=== PATIENT | male | born 1975 | race Caucasian/White ===

== ENCOUNTER 2021-02-27 13:51 | Inpatient (IN) | payer BC ==
[~2021-02-27] VITALS: Ht 190.5 cm; Wt 124.7 kg
[~2021-02-27 13:51] MED LIST: ALDACTONE 25MG25 MG PO; FUROSEMIDE20 MG PO; LOPRESSOR100 MG PO; NORVASC5 MG PO
[2021-02-27 15:53] LABS: RED BLOOD COUNT 4.69 M/UL (4.20-5.50); WHITE BLOOD COUNT 25.1 K/UL (4.5-11.0)
[2021-02-28 04:13] LABS: HEMOGLOBIN 12.4 gm/dl (14.0-17.5); RED BLOOD COUNT 4.23 M/UL (4.20-5.50); WHITE BLOOD COUNT 19.2 K/UL (4.5-11.0)
[2021-03-01 05:33] LABS: HEMOGLOBIN 12.3 gm/dl (14.0-17.5); RED BLOOD COUNT 4.2 M/UL (4.20-5.50); WHITE BLOOD COUNT 17.6 K/UL (4.5-11.0)
[2021-03-02 02:58] LABS: HEMOGLOBIN 12.1 gm/dl (14.0-17.5); RED BLOOD COUNT 4.13 M/UL (4.20-5.50); WHITE BLOOD COUNT 17.2 K/UL (4.5-11.0)
[2021-03-03 09:10] LABS: HEMOGLOBIN 13.4 gm/dl (14.0-17.5)
[2021-03-03 09:13] LABS: RED BLOOD COUNT 4.57 M/UL (4.20-5.50)
[2021-03-03] MEDS ORDERED: CLINDAMYCIN HC300 MG PO (11:54)
[2021-03-03] MEDS ORDERED: FUROSEMIDE20 MG PO (11:54)
== END 2021-03-03 15:12 | disposition home or self-care (01) | DRG 872 ==
LOC: ER1 13:51 → CDU 19:08 → MED SURG 4 19:08
PROVIDERS: ADMIT Internal Medicine
DX: A41.02 Sepsis due to Methicillin resistant Staphylococcus aureus (principal); L03.113 Cellulitis of right upper limb; I13.0 Hypertensive heart and chronic kidney disease with heart failure and stage 1 through stage 4 chronic kidney disease, or unspecified chronic kidney disease; I50.22 Chronic systolic (congestive) heart failure; E87.1 Hypo-osmolality and hyponatremia; L02.818 Cutaneous abscess of other sites; Z20.822 Contact with and (suspected) exposure to COVID-19; N18.30 Chronic kidney disease, stage 3 unspecified; E87.6 Hypokalemia; E66.9 Obesity, unspecified; G47.33 Obstructive sleep apnea (adult) (pediatric); E86.0 Dehydration; R00.0 Tachycardia, unspecified; R79.89 Other specified abnormal findings of blood chemistry; Z80.3 Family history of malignant neoplasm of breast; Z83.3 Family history of diabetes mellitus; Z68.34 Body mass index [BMI] 34.0-34.9, adult; Z79.899 Other long term (current) drug therapy
CPT/HCPCS: 36415; 73201; 80053; 80202; 83605; 85025; 85027; 85652; 86140; 87040; 87070; 87077; 87186; 87205; 93005; 93971; 96374; 96375; 99284; J0696; J1650; J2543; J3370; J7030; J7040; J7070; Q9962; U0002